=== PATIENT | female | born 1955 | race Caucasian/White ===

== ENCOUNTER 2018-05-19 11:44 | Emergency (ER) | payer OTHER, MEDICAID, MEDICARE ==
[2018-05-19] MEDS: KETOROLAC 30 MG INJ IM (14:48)
== END 2018-05-19 18:54 | disposition home or self-care (01) ==
LOC: FTE 11:44
DX: S76.012A Strain of muscle, fascia and tendon of left hip, initial encounter (principal); I10 Essential (primary) hypertension; E11.9 Type 2 diabetes mellitus without complications; F17.210 Nicotine dependence, cigarettes, uncomplicated; W01.0XXA Fall on same level from slipping, tripping and stumbling without subsequent striking against object, initial encounter; Y92.9 Unspecified place or not applicable; Z96.641 Presence of right artificial hip joint; Z96.652 Presence of left artificial knee joint
CPT/HCPCS: 72100; 72131; 73060; 73080-LT; 73510; 73700; 96372; 99285-25